=== PATIENT | female | born 1985 | race Caucasian/White ===

== ENCOUNTER 2016-05-01 18:10 | Emergency (ER) | payer OTHER ==
[~2016-05-01 18:10] MED LIST: AMIT75 PO; BACLOFEN20 MG PO; COG2 PO; DOX25 PO; HALOPERIDOL; LIPITOR20 PO; LUNESTA3 MG PO; LUTUDA; MAXALT10 MG PO; TRILEP150 PO; ZOL100 PO; ZYRTEC ALLGY10 MG
[2016-05-01 21:04] LABS: BASOPHILS 0.1 %; BASOPHILS ABSOLUTE 0.01 10/3/uL (0.0-0.16); EOSINOPHILS 1.4 %; HEMATOCRIT 36.6 % (36.0-48.0); HEMOGLOBIN 12.3 g/dL (12.0-16.0); IMMATURE GRANULOCYTES 0.3 %; IMMATURE GRANULOCYTES ABSOLUTE 0.02 10/3/uL (0.0-0.11); LYMPHOCYTES 23.8 %; LYMPHOCYTES ABSOLUTE 1.67 10/3/uL (0.67-4.30); MEAN CORPUS HGB CONC 33.6 g/dL (32.0-36.0); MEAN CORPUSCULAR HEMOGLOB 30.8 pg (26.0-34.0); MEAN CORPUSCULAR VOLUME 91.5 fL (80-100); MEAN PLATELET VOLUME 9.4 fL (9.2-13.0); MONOCYTES 5.6 %; MONOCYTES ABSOLUTE 0.39 10/3/uL (0.21-1.20); NEUTROPHILS 68.8 %; NEUTROPHILS ABSOLUTE 4.83 10/3/uL (2.02-8.40); PLATELET COUNT 233 10/3/uL (150-400); RBC DISTRIBUTION WIDTH 11.9 % (12.0-16.0)
[2016-05-01 21:05] LABS: MANUAL DIFF NO %
[2016-05-01 21:12] LABS: INTERNATIONAL NORMAL RATI 1.1 UNITS (-); PARTIAL THROMBO TIME 46.5 SEC (22.5-37.2); PROTIME (NOT ORD) 13.7 SEC (12.0-14.5)
[2016-05-01 21:19] LABS: CALCIUM, SERUM 9.2 MG/DL (8.5-10.4); CHEST PAIN PROFILE TAT 0 Hrs 21 Mins; CHLORIDE, SERUM 107 MMOL/L (96-112); CO2 (CARBON DIOXIDE) 26 MMOL/L (24-34); CREATININE 0.75 MG/DL (0.55-1.02); GFR AFRICAN AMERICAN 124 ML/MIN (>=60); GFR NON AFRICAN AMERICAN 107 ML/MIN (>=60); SODIUM, SERUM 141 MMOL/L (135-148); TROPONIN I <0.02 NG/ML (<0.05)
[2016-05-01 21:20] LABS: BUN (BLOOD UREA NITROGEN) 8 MG/DL (6-23); GLUCOSE, SERUM 105 MG/DL (60-99); POTASSIUM, SERUM 3.5 MMOL/L (3.5-5.3)
[2016-05-01] MEDS ORDERED: BACLOFEN20 MG PO (21:31)
[2016-05-01] MEDS ORDERED: COG2 PO (21:32)
[2016-05-01] MEDS ORDERED: ZOL50 PO (21:32)
[2016-05-01] MEDS ORDERED: ZOL100 PO (21:32)
[2016-05-01] MEDS ORDERED: CAT2 PO (21:33)
[2016-05-01] MEDS ORDERED: H5 PO (21:33)
[2016-05-01] MEDS ORDERED: BEN25 PO (21:33)
[2016-05-01] MEDS ORDERED: CYANO1000T PO (21:34)
[2016-05-01] MEDS ORDERED: IMITREX100 MG PO (21:34)
[2016-05-01] MEDS ORDERED: ACET500CAP PO (21:34)
[2016-05-01] MEDS ORDERED: VITAMIN D31000 UNIT PO (21:34)
[2016-05-01] MEDS ORDERED: ICYHOT TOP (21:35)
[2016-05-01] MEDS ORDERED: MIRALAX POWDER1 PKT PO (21:35)
[2016-05-01] MEDS ORDERED: DSS PO (21:35)
[2016-05-01] MEDS ORDERED: ZANTAC300 MG PO (21:35)
[2016-05-01] MEDS ORDERED: FLONASE NAS (21:36)
[2016-05-01] MEDS ORDERED: NEW MED PO (21:36)
[2016-05-01 21:39] LABS: D-DIMER QUANTITATIVE 0.37 ug/mLFEU (< 0.50)
[2016-05-01] MEDS ORDERED: RELPAX PO (21:42)
[2016-05-01] MEDS ORDERED: AMB5 PO (21:42)
== END 2016-05-01 23:14 | disposition home or self-care (01) ==
LOC: ER 18:10
PROVIDERS: Emergency Medicine
DX: R11.0 Nausea (principal); I10 Essential (primary) hypertension; F31.9 Bipolar disorder, unspecified; F41.9 Anxiety disorder, unspecified; D64.9 Anemia, unspecified; Z90.710 Acquired absence of both cervix and uterus; Z88.8 Allergy status to other drugs, medicaments and biological substances; Z91.010 Allergy to peanuts; Z91.040 Latex allergy status; Z91.018 Allergy to other foods; Z79.899 Other long term (current) drug therapy
CPT/HCPCS: 71010; 80048; 83735; 84484; 85025; 85379; 85610; 85730; 93005; 96374; 96376; 99285; A9270-GY; J1200

== ENCOUNTER 2016-07-04 16:19 | Emergency (ER) | payer OTHER ==
[~2016-07-04 16:19] MED LIST changes: +ACET500CAP PO; +AMB5 PO; +BEN25 PO; +CAT2 PO; +CYANO1000T PO; +DSS PO; +FLONASE NAS; +H5 PO; +ICYHOT TOP; +IMITREX100 MG PO; +MIRALAX POWDER1 PKT PO; +NEW MED PO; +RELPAX PO; +VITAMIN D31000 UNIT PO; +ZANTAC300 MG PO; +ZOL50 PO
[2016-07-04 16:42] LABS: BASOPHILS 0.2 %; BASOPHILS ABSOLUTE 0.01 10/3/uL (0.0-0.16); EOSINOPHILS 1.7 %; EOSINOPHILS ABSOLUTE 0.11 10/3/uL (0.0-0.53); HEMATOCRIT 37.6 % (36.0-48.0); HEMOGLOBIN 12.3 g/dL (12.0-16.0); IMMATURE GRANULOCYTES 0.5 %; IMMATURE GRANULOCYTES ABSOLUTE 0.03 10/3/uL (0.0-0.11); LYMPHOCYTES 16.2 %; LYMPHOCYTES ABSOLUTE 1.05 10/3/uL (0.67-4.30); MEAN CORPUS HGB CONC 32.7 g/dL (32.0-36.0); MEAN CORPUSCULAR HEMOGLOB 28.9 pg (26.0-34.0); MEAN PLATELET VOLUME 9.5 fL (9.2-13.0); MONOCYTES 5.2 %; MONOCYTES ABSOLUTE 0.34 10/3/uL (0.21-1.20); NEUTROPHILS 76.2 %; NEUTROPHILS ABSOLUTE 4.96 10/3/uL (2.02-8.40); PLATELET COUNT 220 10/3/uL (150-400); RED CELL COUNT 4.26 10/6/uL (4.0-5.6); WHITE BLOOD CELLS 6.5 10/3/uL (4.5-10.5)
[2016-07-04 16:45] LABS: MANUAL DIFF NO %; MEAN CORPUSCULAR VOLUME 88.3 fL (80-100); RBC DISTRIBUTION WIDTH 14.7 % (12.0-16.0)
[2016-07-04 16:59] LABS: ALBUMIN 3.8 G/DL (3.5-5.0); ASCORBIC ACID (UR NOT ORDER) NEG (NEG); BILIRUBIN, URINE NEGATIVE (NEG); BUN (BLOOD UREA NITROGEN) 11 MG/DL (6-23); CALCIUM, SERUM 9.8 MG/DL (8.5-10.4); CHLORIDE, SERUM 107 MMOL/L (96-112); CO2 (CARBON DIOXIDE) 26 MMOL/L (24-34); CREATININE 0.77 MG/DL (0.55-1.02); ER URINALYSIS TAT 0 Hrs 23 Mins; GFR AFRICAN AMERICAN 120 ML/MIN (>=60); GFR NON AFRICAN AMERICAN 104 ML/MIN (>=60); GLOBULIN 3.8 G/DL (2.5-4.1); GLUCOSE, SERUM 94 MG/DL (60-99); KETONE, URINE NEGATIVE (NEG); LEUKOCYTE ESTERASE(NOT OR NEG (NEG); NITRITE (URINE) NEG (NEG); POTASSIUM, SERUM 4.2 MMOL/L (3.5-5.3); SGOT(AST) 25 U/L (5-40); SGPT(ALT) 31 U/L (5-65); SODIUM, SERUM 139 MMOL/L (135-148); TOTAL BILIRUBIN 0.4 MG/DL (0-1.2); TOTAL PROTEIN 7.6 G/DL (6.0-8.5); WBC (NOT ORDERED) (RFLEX) 2 (0-5)
[2016-07-04 17:01] LABS: ALKALINE PHOSPHATASE 123 U/L (45-117)
== END 2016-07-04 18:12 | disposition home or self-care (01) ==
LOC: ER 16:19
PROVIDERS: Emergency Medicine
DX: R31.9 Hematuria, unspecified (principal); Z91.041 Radiographic dye allergy status; Z91.040 Latex allergy status; Z91.010 Allergy to peanuts; Z79.899 Other long term (current) drug therapy
CPT/HCPCS: 80053; 81001; 83690; 84703; 85025; 99283